=== PATIENT | female | born 1935 | race Caucasian/White ===

== ENCOUNTER 2018-04-02 16:54 | Inpatient (IN) | payer MEDICARE, BC ==
[~2018-04-02] VITALS: Ht 129.5 cm; Wt 49.1 kg
--- NOTE | ~2018-04-02 | CN ---
PATIENT NAME:HADLEY BAUTISTA MEDICAL RECORD: [id number] : 39 LOCATION:[facility] D.2110 ADMIT DATE: 04/02/18 ACCOUNT: [id number] CONSULTING PHYSICIAN: ANTOINETTE KAISER MD REFERRING PHYSICIAN: GEM CARPIO MD DATE OF CONSULTATION: 04/04/2018 HISTORY OF PRESENT ILLNESS: An 82-year-old female with known history of coronary artery disease, has a history of cerebrovascular disease, status CVA transferred from [place] for further evaluation and found to have elevated cardiac enzymes. History is mostly from mom, patient has been somewhat disoriented, delusional since approximately Wednesday, was found down at home. We are asked to see her concerning her cardiovascular status. PAST MEDICAL HISTORY: Includes: 1. History of hypertension. 2. Obstructive pulmonary disease. 3. Dementia. 4. Gastroesophageal reflux disease. SOCIAL HISTORY: Lives in [place], has trouble with ADLs. Current everyday smoker. MEDICATIONS: Upon transfer include DuoNeb q.i.d., metoprolol 25 b.i.d., Protonix 40 every day. REVIEW OF SYSTEMS: Unable to obtained due to patient factors. PHYSICAL EXAMINATION: GENERAL: A frail elderly female currently sedated. VITAL SIGNS: Blood pressure 166/81, pulse 101 and regular. HEENT: Normocephalic, atraumatic. NECK: No bruits are noted. HEART: Regular. A II/ systolic ejection murmur. LUNGS: Poor air movement with prolonged expiratory phase. ABDOMEN: Soft, nontender. EXTREMITIES: Pulses 2+, no edema. IMPRESSION: NSTEMI. Given overall mental status and general state, would try and treat conservatively at this point, antiplatelets, beta blockade, etc. We will check echo as well. Further recommendations based on clinical course. TRANSINT:[id number] Voice Confirmation ID: [id number] DOCUMENT ID: [id number] ANTOINETTE KAISER MD at 1254 CC: [id number] DICTATION DATE: 04/04/18 0847 FACULTY PHYSICIAN: 04/04/18 1142 ADM IN [place] [id number] [place] [address]
--- NOTE | ~2018-04-02 | PN ---
PATIENT:HADLEY BAUTISTA MEDICAL RECORD: [id number] [facility] AD[facility] DATE: 04/02/18 PROGRESS NOTE DATE OF SERVICE: 04/20/2018 SUBJECTIVE: This is an 82-year-old cachectic female was admitted for bilateral pneumonia and bilateral pleural effusion. The patient had large pleural effusion which was removed. There were no organisms seen. The patient's breathing improved. She has residual bilateral pleural effusion with bilateral pneumonia. The patient denies any sputum production or coughing. There is no chest pain. There is no fever. There is no nausea or vomiting. The patient has poor appetite. PHYSICAL EXAMINATION: GENERAL: Reveals an elderly female who is in no acute distress, lying supine. VITAL SIGNS: Temperature 98.2, heart rate of 91, respiratory rate of 18, blood pressure 113/60, saturation 100%. SHEENT: Unremarkable. NECK: Supple. There is no adenopathy. Trachea is midline. There is no thyromegaly. CHEST: Showed some mild crackles bilaterally. There are no wheezes. CARDIAC: Shows no jugular venous distention. No murmur or gallops. ABDOMEN: Benign. EXTREMITIES: There is no clubbing, cyanosis or edema. LABORATORY DATA: White count of 7.6, hemoglobin 11.5 and platelet count is 288. Chemistry is remarkable for carbon dioxide of 42. Potassium is 3.7. Creatinine is 1.3, BUN is 143. Chest x-ray showed small amount of pleural effusions bilaterally, diffuse interstitial disease. ASSESSMENT: 1. Pneumonia with bilateral pleural effusions. 2. Malnutrition. 3. Chronic obstructive pulmonary disease. 4. Stage III chronic renal failure. 5. Hypertension. 6. Dementia. 7. Metabolic alkalosis. PLAN: 1. Continue antibiotics, bronchodilators. 2. BMP to assess. 3. Echocardiogram to assess cardiac function. 4. DVT prophylaxis. TRANSINT:[id number] Voice Confirmation ID: [id number] DOCUMENT ID: [id number] PROGRESS NOTE [id number] HADLEY BAUTISTA [employer] at 1241 CC: [id number] DICTATION DATE: 04/20/18 1645 TREASURY DIRECTOR: 04/20/18 1902 [place] [address]
--- NOTE | ~2018-04-02 | EC ---
PATIENT:HADLEY BAUTISTA DATE OF SERVICE: 04/02/18 SEX: F MEDICAL RECORD: [id number] DATE OF : 39 LOCATION:D.M2 D.211 AGE OF PATIENT: 82 ADMISSION DATE: 04/02/18 REFERRING PHYSICIAN: INTERPRETING PHYSICIAN: ANTOINETTE KAISER MD ECHOCARDIOGRAM REPORT ECHO CHARGES 4 ECHO COMPLETE Date: 04/04 CLINICAL DIAGNOSIS: AMI ECHOCARDIOGRAPHIC MEASUREMENTS (adult normal given) AC root (d.<3.7cm) 3.0 cm LV Septum d (<1.2 cm> 1.3 cm Valve Excursion 1.1 cm LV Septum (systole) 1.8 cm Left Atria (s.<4.0cm> 3.4 cm LVPW d(<1.2cm) 1.1 cm RV (d.<2.3cm) 1.8 cm LVPW (sytole) 1.6 cm LV diastole(<5.6CM) 2.7 cm MV E-F(>70mm/sec) cm LV systole 1.2 cm LVOT Diameter 1.4 cm MV exc.(>10mm) cm Est.ejection fraction (50-75%) % DOPPLER: LVIT cm/sec A 229 cm/sec E 159 cm/sec LA cm/sec RVSP 69.3 mmHg LVOT 176 cm/sec AOP1/2T m/s Asc. Ao 283 cm/sec RVOT 55.0 cm/sec RA cm/sec PA 95.0 cm/sec AV Gradient Peak 32.1 mmHg AV Mean 18.0 mmHg AV Area 0.8 cm MV Gradient Peak 25.0 mmHg MV Mean 11.4 mmHg MV Area cm COMMENTS: Custodial Maintenance Worker: Chuy GRIGSBYOE Bin Filler: 3 Dr. Pierce TAPE# PACS Pericardial Effusion N DATE OF SERVICE: 04/04/2018 Adequate 2D echo, color flow, spectral Doppler, and M-mode Borderline LVH. LV internal dimensions are normal. Wall motion is normal. EF is greater than 55%. Aortic valve is sclerotic. There is no evidence of stenosis on Doppler interrogation. Left atrium is normal at 3.4 cm. Mitral valve is thickened. Moderate MR. Right-sided chamber is normal. Moderate TR. TRANSINT:[id number] Voice Confirmation ID: [id number] DOCUMENT ID: [id number] ECHOCARDIOGRAM REPORT [id number] BAUTISTA,HADLEY ANTOINETTE KAISER MD at 1254 CC: [id number] DICTATION DATE: 04/04/18 1133 DIALYSIS TECHNICIAN: 04/04/18 1224 ADM IN [place] [id number] [place] [id number]
--- NOTE | ~2018-04-02 | PN ---
PATIENT:HADLEY BAUTISTA MEDICAL RECORD: [id number] LOCATION:D. D.211 ADMISSION DATE: 04/02/18 PROGRESS NOTE DATE OF SERVICE: 04/18/2018 SUBJECTIVE: This is an 82-year-old female who appears cachectic and she says that she is feeling better this morning. The patient was admitted for increasing shortness of breath and was found to have pulmonary edema. She was started on oxygen as her bronchodilators with BiPAP. Dialysis was given. She also was noted to have pulmonary thromboembolism, but started on anticoagulation. She has had diastolic dysfunction with preserved left ventricular function. PHYSICAL EXAMINATION: GENERAL: Elderly cachectic female who is in no acute distress. VITAL SIGNS: Temperature 97.7, heart rate of 96, respiratory rate 18, blood pressure 129/74, pulse ox is 96%. SHEENT: Unremarkable. The patient is normocephalic. There is no redness in the nares. There is no obstruction. NECK: Supple. There is no adenopathy. Trachea is midline. CHEST: Showed decreased muscle mass. Mild rales in dependent areas. There is no accessory muscle use. HEART: Shows no jugular venous distention. No murmur or gallop. ABDOMEN: Benign, without any tenderness. EXTREMITIES: There is no clubbing or cyanosis. LABORATORY DATA: Showed white count of 10.7, hemoglobin 11.1 and platelet count is 237,000. Arterial blood gas: pH of 7.46, pCO2 of 57, pO2 of 70. Chemistry is remarkable for bicarbonate of 41, creatinine is 1.2. Her weight is decreased by about 8 pounds. ASSESSMENT: 1. Acute congestive heart failure secondary to diastolic dysfunction. 2. Metabolic alkalosis probably secondary to diuresis. 3. Decreased muscle mass. 4. Pulmonary thromboembolism with small load. PLAN: 1. Reduce Lasix. 2. Continue Eliquis. 3. Decrease Lasix to 20 mg daily. 4. Correct hypokalemia. TRANSINT:[id number] Voice Confirmation ID: [id number] DOCUMENT ID: [id number] PROGRESS NOTE [id number] HADLEY BAUTISTA [employer] at 1508 CC: [id number] DICTATION DATE: 04/18/181803 TESTING LEAD: 04/18/18 2210 ADM IN [place] [id number] [place] [address]
--- NOTE | ~2018-04-02 | PN ---
PATIENT:HADLEY BAUTISTA MEDICAL RECORD: [id number] LOCATION:D. D.211 ADMISSION DATE: 04/02/18 PROGRESS NOTE DATE OF SERVICE: 04/19/2018 SUBJECTIVE: This is an 82-year-old female who was admitted for increasing shortness of breath and acute metabolic encephalopathy with metabolic alkalosis. The patient has also had chronic obstructive pulmonary disease. She has had marked dementia and a history of pulmonary embolism. The patient had thoracentesis today and drawn about 1 liter of fluid, which was sent to the lab. She had an uneventful night and there was no fever or chills. No nausea or vomiting. No chest pain, no abdominal pain. PHYSICAL EXAMINATION: GENERAL: Physical exam reveals a well-developed, well-nourished, cachectic-appearing female who is in no acute distress. VITAL SIGNS: Temperature 97.9, heart rate of 89, respiratory rate of 16, and blood pressure 96/54. SHEENT: Unremarkable. NECK: Supple, no adenopathy. Trachea is midline. CHEST: Good bilateral air flow. There are no wheezes or crackles with decreased muscle mass. There is no accessory muscle use. HEART: Exam shows no jugular venous distention, no murmur or gallops. ABDOMEN: Benign, without any tenderness, masses or distention. EXTREMITIES: No clubbing, cyanosis or edema. LABORATORY DATA: Exam shows a white count 6.5, hemoglobin 10.9, platelet count is 255,000. Chemistry is remarkable for bicarbonate 43, creatinine is 1.3. Chest x-ray showed emphysema, moderate pleural effusion. There is right pleural effusion after post-thoracentesis. There is moderate pulmonary congestion. ASSESSMENT: 1. Congestive heart failure. 2. Chronic obstructive pulmonary disease. 3. Metabolic alkalosis, probably explains the patient's mental status change. This is probably secondary to Lasix. 4. High creatinine. 5. Hypokalemia. PLAN: 1. Stop Lasix. 2. Deep venous thrombosis prophylaxis. 3. Bronchodilators. TRANSINT:[id number] Voice Confirmation ID: [id number] DOCUMENT ID: [id number] PROGRESS NOTE [id number] HADLEY BAUTISTA [employer] at 1641 CC: [id number] DICTATION DATE: 04/19/18 174 SQL ANALYST: 04/19/18 2240 ADM IN [facility] [address] [place] [address]
[2018-04-02] MEDS ORDERED: LOVENOX30 MG/0.3 SC (17:12)
[2018-04-02] MEDS ORDERED: LOPRESSOR25 MG PO (17:12)
[2018-04-02] MEDS ORDERED: IPRAT-ALBUT 0.5-3 ML UPD (17:13)
[2018-04-02] MEDS ORDERED: PROTONIX I40 MG/VIAL IV (17:13)
[2018-04-02 19:19] LABS: APPEARANCE CLEAR (CLEAR); BILIRUBIN NEGATIVE (NEGATIVE); COLOR YELLOW (YELLOW); GLUCOSE NEGATIVE (NEGATIVE); KETONE NEGATIVE (NEGATIVE); NITRITE NEGATIVE (NEGATIVE); PROTEIN 2+ mg/dL (NEGATIVE); UROBILINOGEN NORMAL (NORMAL)
[2018-04-02 19:30] VITALS: BP 157/77
[2018-04-02 19:53] LABS: BASOPHILS 0.2 % (0-2); EOSINOPHILS 0 % (0-7); HEMATOCRIT 42.3 % (36.0-48.0); HEMOGLOBIN 13.9 g/dL (12-16); IMMATURE GRANULOCYTES 0.2 % (0-5); MCH 31.2 pg (26.0-34.0); MCHC 32.9 g/dL (31.0-37.0); MCV 95.1 fL (80.0-100.0); MEAN PLATELET VOLUME 10.9 fL (7.4-10.4); NEUTROPHILS 83.6 % (40-80); PLATELET COUNT 153 10x3/uL (130-400); RBC 4.45 10x6/uL (4.00-5.40); RDW 13.7 % (11.5-14.5)
[2018-04-02 20:03] LABS: APTT 23.9 SECONDS (22.8-39.4); INR 0.9 (0.85-1.17); PROTIME 11.8 SECONDS (11.6-15.0)
[2018-04-02 20:08] LABS: ALKALINE PHOSPHATASE 75 U/L (46-116); ALT (SGPT) 18 U/L (10-68); BILIRUBIN - TOTAL 0.32 mg/dL (0.2-1.3); CALC OSMOLALITY 279 mosm/kg (275-300); CALCIUM 8.5 mg/dL (8.5-10.1); CARBON DIOXIDE 30.6 mmol/L (21.0-32.0); CHLORIDE - SERUM 103 mmol/L (98-107); CREATININE - SERUM 1.3 mg/dL (0.6-1.3); GLUCOSE 104 mg/dL (74-106); POTASSIUM - SERUM 3.7 mmol/L (3.5-5.1); PROTEIN - SERUM 7.1 g/dL (6.4-8.2); SODIUM 140 mmol/L (136-145); UREA NITROGEN 16 mg/dL (7-18); eGFR NON AFRICAN AMERICAN 42 mL/min (90-120)
[2018-04-02 20:23] LABS: CREATINE KINASE 119 UL (21-215); PRO BNP 9135 pg/mL (0-450)
[2018-04-02 20:24] LABS: TROPONIN-I 1.106 ng/mL (0.000-0.060)
[2018-04-02 21:00] VITALS: BP 123/79
[2018-04-02 22:00] VITALS: BP 118/79
[2018-04-02 22:33] LABS: TROPONIN-I 0.957 ng/mL (0.000-0.060)
[2018-04-02 23:02] VITALS: BP 99/66
[2018-04-03] VITALS (7 sets, daily range): BP systolic 99–162; BP diastolic 66–82; BMI 28.1
[2018-04-03 03:05] LABS: CKMB 5.2 U/L (0.0-3.6); CREATINE KINASE 119 UL (21-215)
[2018-04-03 03:06] LABS: TROPONIN-I 0.824 ng/mL (0.000-0.060)
[2018-04-03 09:51] LABS: CKMB 4.3 U/L (0.0-3.6); CREATINE KINASE 137 UL (21-215); TROPONIN-I 0.624 ng/mL (0.000-0.060)
[2018-04-04 01:16] VITALS: BP 159/77
[2018-04-04 05:10] VITALS: BP 166/81
[2018-04-04 06:58] LABS: BASOPHILS 0 % (0-2); EOSINOPHILS 0 % (0-7); HEMATOCRIT 40.1 % (36.0-48.0); HEMOGLOBIN 13.3 g/dL (12-16); IMMATURE GRANULOCYTES 0.1 % (0-5); LYMPHOCYTES 15.2 % (15-50); MCHC 33.2 g/dL (31.0-37.0); MCV 93.5 fL (80.0-100.0); MEAN PLATELET VOLUME 11.7 fL (7.4-10.4); MONOCYTES 9.4 % (2-11); NEUTROPHILS 75.3 % (40-80); PLATELET COUNT 148 10x3/uL (130-400); RBC 4.29 10x6/uL (4.00-5.40); RDW 13.3 % (11.5-14.5)
[2018-04-04 07:17] LABS: ANION GAP 11.3 mmol/L (8-16); CALCIUM 8.3 mg/dL (8.5-10.1); CARBON DIOXIDE 27.9 mmol/L (21.0-32.0); CREATININE - SERUM 1.2 mg/dL (0.6-1.3); POTASSIUM - SERUM 3.2 mmol/L (3.5-5.1)
[2018-04-04 13:22] VITALS: Ht 129.5 cm; Wt 49.1 kg
[2018-04-04 16:49] LABS: CHOL - HDL RATIO 3.9 ratio (2.3-4.1); LDL-HDL RATIO 2.5 ratio (1.5-3.5)
[2018-04-05 04:00] VITALS: BP 143/81
[2018-04-05 06:05] LABS: BASOPHILS 0.1 % (0-2); EOSINOPHILS 0.1 % (0-7); HEMOGLOBIN 13.7 g/dL (12-16); IMMATURE GRANULOCYTES 0.1 % (0-5); LYMPHOCYTES 11.7 % (15-50); MCH 31.1 pg (26.0-34.0); MCHC 33.4 g/dL (31.0-37.0); MCV 93.2 fL (80.0-100.0); MEAN PLATELET VOLUME 11.5 fL (7.4-10.4); MONOCYTES 8.7 % (2-11); NEUTROPHILS 79.3 % (40-80); PLATELET COUNT 137 10x3/uL (130-400); RDW 13.5 % (11.5-14.5); WBC 6.9 10x3/uL (4.8-10.8)
[2018-04-05 06:21] LABS: ANION GAP 12.8 mmol/L (8-16); CALCIUM 8.4 mg/dL (8.5-10.1); CARBON DIOXIDE 27.7 mmol/L (21.0-32.0); CREATININE - SERUM 1.2 mg/dL (0.6-1.3); POTASSIUM - SERUM 3.5 mmol/L (3.5-5.1)
[2018-04-05 08:11] VITALS: BP 150/80
[2018-04-05 11:50] VITALS: BP 192/90
[2018-04-05 15:52] VITALS: BP 149/76
[2018-04-05 20:34] VITALS: BP 119/79
[2018-04-06 01:15] VITALS: BP 150/82
[2018-04-06 05:40] VITALS: BP 159/98
[2018-04-06 06:23] LABS: BASOPHILS 0.1 % (0-2); EOSINOPHILS 0.4 % (0-7); HEMOGLOBIN 13.8 g/dL (12-16); IMMATURE GRANULOCYTES 0.1 % (0-5); LYMPHOCYTES 12.8 % (15-50); MCH 31.2 pg (26.0-34.0); MCHC 33.7 g/dL (31.0-37.0); MCV 92.8 fL (80.0-100.0); MEAN PLATELET VOLUME 11.4 fL (7.4-10.4); MONOCYTES 8.5 % (2-11); NEUTROPHILS 78.1 % (40-80); PLATELET COUNT 131 10x3/uL (130-400); RBC 4.42 10x6/uL (4.00-5.40); RDW 13.5 % (11.5-14.5); WBC 7.8 10x3/uL (4.8-10.8)
[2018-04-06 06:31] LABS: ANION GAP 10.5 mmol/L (8-16); CALCIUM 7.9 mg/dL (8.5-10.1); CARBON DIOXIDE 28.5 mmol/L (21.0-32.0); CREATININE - SERUM 1.2 mg/dL (0.6-1.3)
[2018-04-06 08:42] VITALS: BP 178/95
[2018-04-06 11:38] VITALS: BP 123/68
[2018-04-06 16:04] VITALS: BP 146/80
[2018-04-06 21:02] VITALS: BP 123/86
[2018-04-07 05:44] LABS: BASOPHILS 0.3 % (0-2); EOSINOPHILS 0.7 % (0-7); HEMATOCRIT 40.5 % (36.0-48.0); HEMOGLOBIN 13.6 g/dL (12-16); IMMATURE GRANULOCYTES 0.1 % (0-5); MCH 31.1 pg (26.0-34.0); MCHC 33.6 g/dL (31.0-37.0); MCV 92.7 fL (80.0-100.0); MEAN PLATELET VOLUME 10.9 fL (7.4-10.4); MONOCYTES 6.6 % (2-11); NEUTROPHILS 78.3 % (40-80); PLATELET COUNT 117 10x3/uL (130-400); RBC 4.37 10x6/uL (4.00-5.40); RDW 13.5 % (11.5-14.5); WBC 7.4 10x3/uL (4.8-10.8)
[2018-04-07 06:11] VITALS: BP 163/84
[2018-04-07 06:26] LABS: ANION GAP 10.8 mmol/L (8-16); CALCIUM 7.9 mg/dL (8.5-10.1); CARBON DIOXIDE 29.4 mmol/L (21.0-32.0); CREATININE - SERUM 1.2 mg/dL (0.6-1.3); POTASSIUM - SERUM 3.2 mmol/L (3.5-5.1)
[2018-04-07 07:48] VITALS: BP 96/76
[2018-04-07 08:25] LABS: MAGNESIUM - SERUM 1.7 mg/dL (1.8-2.4)
[2018-04-07 08:34] LABS: TROPONIN-I 4.186 ng/mL (0.000-0.060)
[2018-04-07 11:52] VITALS: BP 120/65
[2018-04-07 15:54] VITALS: BP 145/65
[2018-04-07 21:00] VITALS: BP 142/75
[2018-04-08 02:11] VITALS: BP 117/77
[2018-04-08 05:52] LABS: BASOPHILS 0.1 % (0-2); EOSINOPHILS 0.5 % (0-7); HEMATOCRIT 36.4 % (36.0-48.0); HEMOGLOBIN 11.9 g/dL (12-16); IMMATURE GRANULOCYTES 0.1 % (0-5); LYMPHOCYTES 6.1 % (15-50); MCH 30.9 pg (26.0-34.0); MCHC 32.7 g/dL (31.0-37.0); MCV 94.5 fL (80.0-100.0); MEAN PLATELET VOLUME 11.6 fL (7.4-10.4); MONOCYTES 4.6 % (2-11); NEUTROPHILS 88.6 % (40-80); PLATELET COUNT 104 10x3/uL (130-400); RBC 3.85 10x6/uL (4.00-5.40); RDW 13.9 % (11.5-14.5); WBC 9.1 10x3/uL (4.8-10.8)
[2018-04-08 06:24] LABS: ANION GAP 12.8 mmol/L (8-16); CALCIUM 7.7 mg/dL (8.5-10.1); CARBON DIOXIDE 24.4 mmol/L (21.0-32.0); CREATININE - SERUM 1.1 mg/dL (0.6-1.3); POTASSIUM - SERUM 3.2 mmol/L (3.5-5.1)
[2018-04-08 06:28] VITALS: BP 106/65
[2018-04-08 07:40] VITALS: BP 103/67
[2018-04-08 11:55] VITALS: BP 121/62
[2018-04-08 15:08] VITALS: BP 121/59
[2018-04-08 21:12] VITALS: BP 146/89
[2018-04-09 02:11] VITALS: BP 103/57
[2018-04-09 06:12] VITALS: BP 96/56
[2018-04-09 08:41] VITALS: BP 148/68
[2018-04-09 18:39] VITALS: BP 131/48
[2018-04-09 20:00] VITALS: BP 162/82
[2018-04-09 23:57] VITALS: BP 148/68
[2018-04-10 04:00] VITALS: BP 184/88
[2018-04-10 08:37] VITALS: BP 139/75
[2018-04-10 12:27] VITALS: BP 124/54
[2018-04-10 20:00] VITALS: BP 170/95
[2018-04-11] VITALS: BP 138/84
[2018-04-11 04:00] VITALS: BP 150/73
[2018-04-11 05:43] LABS: BASOPHILS 0.1 % (0-2); EOSINOPHILS 0.1 % (0-7); HEMATOCRIT 39.2 % (36.0-48.0); HEMOGLOBIN 12.7 g/dL (12-16); IMMATURE GRANULOCYTES 0.4 % (0-5); LYMPHOCYTES 3.8 % (15-50); MCH 31.1 pg (26.0-34.0); MCHC 32.4 g/dL (31.0-37.0); MCV 96.1 fL (80.0-100.0); MEAN PLATELET VOLUME 11.2 fL (7.4-10.4); MONOCYTES 7.3 % (2-11); NEUTROPHILS 88.3 % (40-80); RBC 4.08 10x6/uL (4.00-5.40); RDW 14.5 % (11.5-14.5); WBC 10.8 10x3/uL (4.8-10.8)
[2018-04-11 05:44] LABS: PLATELET COUNT 134 10x3/uL (130-400)
[2018-04-11 06:05] LABS: ANION GAP 10.5 mmol/L (8-16); CALCIUM 8.3 mg/dL (8.5-10.1); CREATININE - SERUM 1.2 mg/dL (0.6-1.3); POTASSIUM - SERUM 4.5 mmol/L (3.5-5.1)
[2018-04-11 09:39] VITALS: BP 108/78
[2018-04-11 12:32] VITALS: BP 119/62
[2018-04-11 17:05] VITALS: BP 148/92
[2018-04-11 20:36] VITALS: BP 156/88
[2018-04-12 04:59] VITALS: BP 165/91
[2018-04-12 08:27] VITALS: BP 169/91
[2018-04-12 12:02] VITALS: BP 142/82
[2018-04-12 20:15] VITALS: BP 119/51
[2018-04-13 05:28] VITALS: BP 151/84
[2018-04-13 06:00] LABS: BASOPHILS 0.1 % (0-2); EOSINOPHILS 0.6 % (0-7); HEMATOCRIT 36.5 % (36.0-48.0); HEMOGLOBIN 12.1 g/dL (12-16); IMMATURE GRANULOCYTES 0.4 % (0-5); LYMPHOCYTES 9.6 % (15-50); MCH 31.1 pg (26.0-34.0); MCHC 33.2 g/dL (31.0-37.0); MEAN PLATELET VOLUME 11.7 fL (7.4-10.4); NEUTROPHILS 82.3 % (40-80); RBC 3.89 10x6/uL (4.00-5.40); RDW 14.1 % (11.5-14.5); WBC 10.9 10x3/uL (4.8-10.8)
[2018-04-13 06:12] LABS: CALCIUM 8.1 mg/dL (8.5-10.1); CREATININE - SERUM 1.1 mg/dL (0.6-1.3)
[2018-04-13 06:19] LABS: ANION GAP 8.7 mmol/L (8-16); CARBON DIOXIDE 33.7 mmol/L (21.0-32.0); POTASSIUM - SERUM 3.4 mmol/L (3.5-5.1)
[2018-04-13 06:31] LABS: MCV 93.8 fL (80.0-100.0); PLATELET COUNT 187 10x3/uL (130-400)
[2018-04-13 09:12] VITALS: BP 126/67
[2018-04-13 12:08] VITALS: BP 125/68
[2018-04-13 16:05] VITALS: BP 115/66
[2018-04-14 04:00] VITALS: BP 139/78
[2018-04-14 05:38] LABS: BASOPHILS 0.3 % (0-2); EOSINOPHILS 0.9 % (0-7); HEMATOCRIT 34.2 % (36.0-48.0); IMMATURE GRANULOCYTES 0.7 % (0-5); LYMPHOCYTES 7.3 % (15-50); MCH 30.9 pg (26.0-34.0); MCHC 32.2 g/dL (31.0-37.0); MCV 96.1 fL (80.0-100.0); MEAN PLATELET VOLUME 11.4 fL (7.4-10.4); MONOCYTES 7.3 % (2-11); NEUTROPHILS 83.5 % (40-80); PLATELET COUNT 184 10x3/uL (130-400); RBC 3.56 10x6/uL (4.00-5.40); RDW 14.1 % (11.5-14.5); WBC 7.5 10x3/uL (4.8-10.8)
[2018-04-14 06:14] LABS: ANION GAP 7.3 mmol/L (8-16); CALCIUM 7.8 mg/dL (8.5-10.1); CREATININE - SERUM 1.3 mg/dL (0.6-1.3)
[2018-04-14 06:29] LABS: POTASSIUM - SERUM 4.3 mmol/L (3.5-5.1)
[2018-04-14 08:36] VITALS: BP 113/59
[2018-04-14] MEDS ORDERED: ELIQUIS2.5 MG PO (11:45)
[2018-04-14] MEDS ORDERED: PROTONIX40 MG PO (11:46)
[2018-04-14] MEDS ORDERED: PLAVIX75 MG PO (11:46)
[2018-04-14] MEDS ORDERED: MIRALAX17 GM PO (11:47)
[2018-04-14] MEDS ORDERED: ELIQUIS5 MG PO (11:48)
[2018-04-14] MEDS ORDERED: BAYER CHEWABLE81 MG PO (12:14)
[2018-04-14] MEDS ORDERED: LIPITOR20 MG PO (12:19)
[2018-04-14 12:33] VITALS: BP 160/83
[2018-04-14 17:21] VITALS: BP 145/71
[2018-04-14 21:09] VITALS: BP 142/72
[2018-04-15 05:47] LABS: BASOPHILS 0.1 % (0-2); EOSINOPHILS 0.4 % (0-7); HEMATOCRIT 37.1 % (36.0-48.0); HEMOGLOBIN 11.6 g/dL (12-16); IMMATURE GRANULOCYTES 0.6 % (0-5); LYMPHOCYTES 6.9 % (15-50); MCH 30.9 pg (26.0-34.0); MCHC 31.3 g/dL (31.0-37.0); MCV 98.7 fL (80.0-100.0); MEAN PLATELET VOLUME 11.3 fL (7.4-10.4); MONOCYTES 7.4 % (2-11); NEUTROPHILS 84.6 % (40-80); PLATELET COUNT 222 10x3/uL (130-400); RBC 3.76 10x6/uL (4.00-5.40)
[2018-04-15 05:50] VITALS: BP 141/74
[2018-04-15 06:02] LABS: ANION GAP 3.7 mmol/L (8-16); CALCIUM 8.6 mg/dL (8.5-10.1); CARBON DIOXIDE 35.5 mmol/L (21.0-32.0); CREATININE - SERUM 1.3 mg/dL (0.6-1.3); POTASSIUM - SERUM 4.2 mmol/L (3.5-5.1)
[2018-04-15 08:25] VITALS: BP 169/99
[2018-04-15] MEDS ORDERED: LEVAQUIN500 MG PO (08:58)
[2018-04-15 11:38] VITALS: BP 160/75
[2018-04-15 15:22] VITALS: BP 167/84
[2018-04-15 20:22] VITALS: BP 119/68
[2018-04-16] VITALS: BP 121/88
[2018-04-16 06:31] LABS: BASOPHILS 0.1 % (0-2); EOSINOPHILS 0.6 % (0-7); HEMATOCRIT 38.6 % (36.0-48.0); IMMATURE GRANULOCYTES 0.6 % (0-5); LYMPHOCYTES 10.6 % (15-50); MCH 30.8 pg (26.0-34.0); MCHC 31.1 g/dL (31.0-37.0); MEAN PLATELET VOLUME 11.3 fL (7.4-10.4); MONOCYTES 6.5 % (2-11); NEUTROPHILS 81.6 % (40-80); PLATELET COUNT 232 10x3/uL (130-400); RDW 13.8 % (11.5-14.5); WBC 8.4 10x3/uL (4.8-10.8)
[2018-04-16 06:35] VITALS: BP 107/73
[2018-04-16 06:43] LABS: ANION GAP 6.5 mmol/L (8-16); CALCIUM 8.7 mg/dL (8.5-10.1); CREATININE - SERUM 1.2 mg/dL (0.6-1.3); MAGNESIUM - SERUM 2.1 mg/dL (1.8-2.4); PHOSPHOROUS 3.9 mg/dL (2.5-4.9); POTASSIUM - SERUM 4.5 mmol/L (3.5-5.1)
[2018-04-16 07:53] VITALS: BP 164/93
[2018-04-16 11:57] VITALS: BP 160/96
[2018-04-16 15:20] VITALS: BP 120/70
[2018-04-16 19:00] VITALS: BP 135/74
[2018-04-17 00:29] VITALS: BP 148/84
[2018-04-17 05:06] VITALS: BP 153/91
[2018-04-17 05:10] LABS: BASOPHILS 0.1 % (0-2); EOSINOPHILS 1.5 % (0-7); HEMATOCRIT 35.2 % (36.0-48.0); HEMOGLOBIN 11.1 g/dL (12-16); IMMATURE GRANULOCYTES 0.6 % (0-5); LYMPHOCYTES 8.9 % (15-50); MCHC 31.5 g/dL (31.0-37.0); MCV 98.3 fL (80.0-100.0); MEAN PLATELET VOLUME 11.3 fL (7.4-10.4); MONOCYTES 6.3 % (2-11); NEUTROPHILS 82.6 % (40-80); PLATELET COUNT 239 10x3/uL (130-400); RBC 3.58 10x6/uL (4.00-5.40); RDW 13.5 % (11.5-14.5); WBC 8.4 10x3/uL (4.8-10.8)
[2018-04-17 05:30] LABS: CALCIUM 8.4 mg/dL (8.5-10.1); CREATININE - SERUM 1.2 mg/dL (0.6-1.3)
[2018-04-17 05:35] LABS: ANION GAP 5.4 mmol/L (8-16); POTASSIUM - SERUM 3.8 mmol/L (3.5-5.1)
[2018-04-17 05:36] LABS: CARBON DIOXIDE 43.4 mmol/L (21.0-32.0)
[2018-04-17 08:43] VITALS: BP 157/86
[2018-04-17 13:35] VITALS: BP 146/91
[2018-04-17 16:17] VITALS: BP 126/68
[2018-04-17 21:24] VITALS: BP 135/70
[2018-04-18 00:57] VITALS: BP 142/82
[2018-04-18 05:21] LABS: BASOPHILS 0.1 % (0-2); EOSINOPHILS 1.1 % (0-7); HEMATOCRIT 35.8 % (36.0-48.0); HEMOGLOBIN 11.1 g/dL (12-16); IMMATURE GRANULOCYTES 0.4 % (0-5); LYMPHOCYTES 7.9 % (15-50); MCH 30.6 pg (26.0-34.0); MCV 98.6 fL (80.0-100.0); MEAN PLATELET VOLUME 11.1 fL (7.4-10.4); MONOCYTES 4.4 % (2-11); NEUTROPHILS 86.1 % (40-80); PLATELET COUNT 237 10x3/uL (130-400); RBC 3.63 10x6/uL (4.00-5.40); RDW 13.5 % (11.5-14.5)
[2018-04-18 05:31] LABS: WBC 10.7 10x3/uL (4.8-10.8)
[2018-04-18 05:52] VITALS: BP 127/67
[2018-04-18 05:52] LABS: ANION GAP 5.6 mmol/L (8-16); CALCIUM 8.6 mg/dL (8.5-10.1); CREATININE - SERUM 1.2 mg/dL (0.6-1.3); POTASSIUM - SERUM 3.7 mmol/L (3.5-5.1); PROTEIN - SERUM 5.7 g/dL (6.4-8.2)
[2018-04-18 05:55] LABS: CARBON DIOXIDE 41.1 mmol/L (21.0-32.0)
[2018-04-18 07:41] LABS: INR 1.17 (0.85-1.17); PROTIME 14.5 SECONDS (11.6-15.0)
[2018-04-18 07:42] LABS: APTT 31.6 SECONDS (22.8-39.4)
[2018-04-18 11:59] VITALS: BP 136/73
[2018-04-18 15:59] VITALS: BP 129/74
[2018-04-18 20:00] VITALS: BP 142/82
[2018-04-19] VITALS (9 sets, daily range): BP systolic 79–154; BP diastolic 54–93
[2018-04-19 05:54] LABS: BASOPHILS 0.2 % (0-2); EOSINOPHILS 1.9 % (0-7); HEMATOCRIT 35.4 % (36.0-48.0); HEMOGLOBIN 10.9 g/dL (12-16); IMMATURE GRANULOCYTES 0.5 % (0-5); LYMPHOCYTES 10.5 % (15-50); MCH 30.6 pg (26.0-34.0); MCHC 30.8 g/dL (31.0-37.0); MCV 99.4 fL (80.0-100.0); MONOCYTES 8.7 % (2-11); NEUTROPHILS 78.2 % (40-80); PLATELET COUNT 255 10x3/uL (130-400); RBC 3.56 10x6/uL (4.00-5.40); RDW 13.7 % (11.5-14.5)
[2018-04-19 06:18] LABS: WBC 6.5 10x3/uL (4.8-10.8)
[2018-04-19 06:38] LABS: ALBUMIN 1.7 g/dL (3.4-5.0); ANION GAP 3.1 mmol/L (8-16); BILIRUBIN - TOTAL 0.29 mg/dL (0.2-1.3); CALCIUM 8.4 mg/dL (8.5-10.1); CREATININE - SERUM 1.3 mg/dL (0.6-1.3); MAGNESIUM - SERUM 2.3 mg/dL (1.8-2.4); POTASSIUM - SERUM 3.8 mmol/L (3.5-5.1); PROTEIN - SERUM 5.6 g/dL (6.4-8.2)
[2018-04-19 06:40] LABS: CARBON DIOXIDE 42.7 mmol/L (21.0-32.0)
[2018-04-19 06:48] LABS: APTT 30.7 SECONDS (22.8-39.4); INR 1.03 (0.85-1.17); PROTIME 12.9 SECONDS (11.6-15.0)
[2018-04-19 15:19] LABS: PROTEIN - BODY FLUID 1.4 G/DL
[2018-04-19 15:49] LABS: MACROPHAGES BF 14 %; MESOTHELIALS BF 3 %; NEUT - BF 27 %
[2018-04-20 05:33] VITALS: BP 152/68
[2018-04-20 05:38] LABS: BASOPHILS 0.1 % (0-2); EOSINOPHILS 1.2 % (0-7); HEMATOCRIT 36.9 % (36.0-48.0); HEMOGLOBIN 11.5 g/dL (12-16); IMMATURE GRANULOCYTES 0.4 % (0-5); LYMPHOCYTES 13.4 % (15-50); MCH 30.7 pg (26.0-34.0); MCHC 31.2 g/dL (31.0-37.0); MCV 98.7 fL (80.0-100.0); MEAN PLATELET VOLUME 11.2 fL (7.4-10.4); MONOCYTES 6.8 % (2-11); NEUTROPHILS 78.1 % (40-80); PLATELET COUNT 288 10x3/uL (130-400); RBC 3.74 10x6/uL (4.00-5.40); RDW 13.6 % (11.5-14.5); WBC 7.6 10x3/uL (4.8-10.8)
[2018-04-20 06:01] LABS: ALBUMIN 1.6 g/dL (3.4-5.0); BILIRUBIN - TOTAL 0.43 mg/dL (0.2-1.3); CALCIUM 8.1 mg/dL (8.5-10.1); CREATININE - SERUM 1.3 mg/dL (0.6-1.3); POTASSIUM - SERUM 3.7 mmol/L (3.5-5.1); PROTEIN - SERUM 5.6 g/dL (6.4-8.2)
[2018-04-20 06:17] LABS: ANION GAP 4.2 mmol/L (8-16); CARBON DIOXIDE 41.5 mmol/L (21.0-32.0)
[2018-04-20 07:43] VITALS: BP 133/68
[2018-04-20 11:30] VITALS: BP 135/78
[2018-04-20 15:37] VITALS: BP 113/60
[2018-04-20 20:26] VITALS: BP 118/65
[2018-04-21 00:14] VITALS: BP 105/59
[2018-04-21 04:30] VITALS: BP 121/67
[2018-04-21 05:04] LABS: BASOPHILS 0.2 % (0-2); EOSINOPHILS 2.7 % (0-7); HEMATOCRIT 35.4 % (36.0-48.0); HEMOGLOBIN 10.9 g/dL (12-16); IMMATURE GRANULOCYTES 0.4 % (0-5); LYMPHOCYTES 16.7 % (15-50); MCH 30.4 pg (26.0-34.0); MCHC 30.8 g/dL (31.0-37.0); MCV 98.6 fL (80.0-100.0); MONOCYTES 8.6 % (2-11); NEUTROPHILS 71.4 % (40-80); PLATELET COUNT 269 10x3/uL (130-400); RBC 3.59 10x6/uL (4.00-5.40); RDW 13.5 % (11.5-14.5)
[2018-04-21 05:22] LABS: WBC 5.3 10x3/uL (4.8-10.8)
[2018-04-21 05:25] LABS: ALBUMIN 1.7 g/dL (3.4-5.0); BILIRUBIN - TOTAL 0.25 mg/dL (0.2-1.3); CALCIUM 8.1 mg/dL (8.5-10.1); CREATININE - SERUM 1.4 mg/dL (0.6-1.3); POTASSIUM - SERUM 4.2 mmol/L (3.5-5.1); PROTEIN - SERUM 5.5 g/dL (6.4-8.2)
[2018-04-21 05:35] LABS: ANION GAP 3.1 mmol/L (8-16); CARBON DIOXIDE 42.1 mmol/L (21.0-32.0)
[2018-04-21 07:46] VITALS: BP 158/75
[2018-04-21 11:52] VITALS: BP 135/72
[2018-04-21] MEDS ORDERED: ALDACTONE25 MG PO (15:19)
[2018-04-21] MEDS ORDERED: ELIQUIS2.5 MG PO (15:36)
[2018-04-21] MEDS ORDERED: LASIX20 MG PO (15:38)
[2018-04-21] MEDS ORDERED: XOPENEX 0.0.63 MG/3 INH (15:38)
[2018-04-21] MEDS ORDERED: PULMICORT0.5 MG/21 UPD (15:46)
[2018-04-21 16:00] VITALS: BP 119/69
[2018-04-21 18:10] LABS: ACID FAST SMEAR Negative (()); AFB SPECIMEN PROCESSING Not Indicated (())
[2018-04-22 12:16] LABS: FUNGUS STAIN Final report (())
[2018-05-18 11:23] LABS: FUNGUS MYCOLOGY CULTURE Final report (())
== END 2018-04-21 18:11 | DRG 64 ==
LOC: D.ER 16:54 → D.EDHOLD 21:23 → D.M2 21:23
PROVIDERS: Emergency Medicine; Family Medicine; Family Medicine Adult Medicine; Internal Medicine Nephrology; Internal Medicine Pulmonary Disease; Radiology Diagnostic Radiology; Radiology Vascular & Interventional Radiology
PROC: 0W9B3ZZ Drainage of Left Pleural Cavity, Percutaneous Approach (ICD-10-PCS; principal; 2018-04-19 13:19)
DX: I63.9 Cerebral infarction, unspecified (principal); R40.2344 Coma scale, best motor response, flexion withdrawal, 24 hours or more after hospital admission; G93.41 Metabolic encephalopathy; I21.4 Non-ST elevation (NSTEMI) myocardial infarction; I26.99 Other pulmonary embolism without acute cor pulmonale; R40.2144 Coma scale, eyes open, spontaneous, 24 hours or more after hospital admission; R40.2244 Coma scale, best verbal response, confused conversation, 24 hours or more after hospital admission; Z86.73 Personal history of transient ischemic attack (TIA), and cerebral infarction without residual deficits; I25.10 Atherosclerotic heart disease of native coronary artery without angina pectoris; Z66 Do not resuscitate; I12.9 Hypertensive chronic kidney disease with stage 1 through stage 4 chronic kidney disease, or unspecified chronic kidney disease; N18.3 Chronic kidney disease, stage 3 (moderate); J44.9 Chronic obstructive pulmonary disease, unspecified; F03.90 Unspecified dementia, unspecified severity, without behavioral disturbance, psychotic disturbance, mood disturbance, and anxiety; K21.9 Gastro-esophageal reflux disease without esophagitis; Z72.0 Tobacco use; Z91.81 History of falling; I08.1 Rheumatic disorders of both mitral and tricuspid valves